=== PATIENT | male | born 1980 | race African-American/Black ===

== ENCOUNTER 2022-11-08 00:31 | Emergency (ER) | payer SELFPAY ==
[~2022-11-08] VITALS: Ht 177.8 cm; Wt 84.1 kg
[2022-11-08 00:38] VITALS: BP 121/71; PULSE 98; TEMP 98
[2022-11-08] MEDS ORDERED: FLEXERIL 1010 MG/TAB PO (01:06)
== END 2022-11-08 01:15 | disposition home or self-care (01) ==
LOC: COL.ER 00:31
DX: M54.50 Low back pain, unspecified (principal); J06.9 Acute upper respiratory infection, unspecified; Z20.822 Contact with and (suspected) exposure to COVID-19
CPT/HCPCS: J1885